=== PATIENT | male | born 1930 | race Caucasian/White ===

== ENCOUNTER 2016-05-17 13:32 | Outpatient (CLI) | payer MEDICARE, BC ==
--- NOTE | 2016-05-17 15:17 | RAD ---
TWO VIEWS RIGHT HIP: INDICATION: Right hip pain. FINDINGS: Three metallic screws traverse fracture site of the subcapital aspect of proximal right femur. Alig nment is grossly stable. No significant interval change. IMPRESSION: Persistent fracture lucency of the postoperative right femur related to pinned subcapital right femo ral neck fracture. POS: [facility]
== END 2016-05-17 13:33 | disposition home or self-care (01) ==
LOC: MADRAD 13:32
PROVIDERS: ATTEND Orthopaedic Surgery
DX: S72.001A Fracture of unspecified part of neck of right femur, initial encounter for closed fracture (principal)

== ENCOUNTER 2017-02-05 08:07 | Emergency (ER) | payer MEDICARE, BC ==
[2017-02-05 09:04] LABS: #Lymphocytes 1.1 thou/uL (1.20-3.40); #Monocytes 0.6 thou/uL (0.11-0.59); %Basophils 0.5 % (0.0-1.0); %Eosinophils 0.6 % (0.0-10.0); %Lymphocytes 12.3 % (21.0-51.0); %Monocytes 6.6 % (0.0-10.0); %Neutrophils 80.1 % (42.0-75.0); Hemoglobin 15.2 g/dL (14.0-18.0); Mean Corpuscular HGB CONC 34.1 g/dL (32.0-36.0); Mean Corpuscular Hemoglobin 31.9 pg (27.0-31.0); Mean Corpuscular Volume 93.5 fl (80.0-94.0); Mean Platelet Volume 6.5 fL (7.4-10.4); Platelet Count 160 thou/uL (130-400); RBC Distribution Width 12.1 % (11.5-14.5); Red Blood Cell (RBC) Count 4.75 mill/uL (4.70-6.10); White Blood Cell (WBC) Count 8.7 thou/uL (4.8-10.8)
--- NOTE | 2017-02-05 09:14 | RAD ---
PORTABLE AP CHEST: Date: 02-05-17 History: Vomiting. 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 Dual-lead left subclavian cardiac pacemaking d evice remains in place. Cardiac silhouette and pulmonary vasculature are within normal limits. Lungs are clear. There is vascular calcification seen in the thoracic aorta. There has been no interval milena nge from prior study. IMPRESSION: No acute cardiopulmonary process. POS: [facility]
--- NOTE | 2017-02-05 09:16 | RAD ---
SUPINE ABDOMEN: History: Vomiting. FINDINGS: Bowel gas pattern is unremarkable. There is scattered gas in the colon and there is also some scatter ed small bowel gas. No evidence of small bowel dilatation or obstruction. No mass effect. Radiopaque stents overlying both iliac arteries. Degenerative changes at the hips and prior fixation of the righ t hip. IMPRESSION: Unremarkable bowel gas pattern. POS: [facility]
[2017-02-05 09:20] LABS: ALT (SGPT) 15 U/L (8-55); AST (SGOT) 18 U/L (5-34); Albumin 4.1 g/dL (3.4-4.8); Alkaline Phosphatase 89 U/L (40-150); Anion Gap 15 mmol/L (10-20); BUN (Urea Nitrogen) 23 mg/dL (8.4-25.7); Bilirubin, Total 0.9 mg/dL (0.2-1.2); Calc. Creatinine Clearance 0 mL/min (70-130); Calcium 9.4 mg/dL (7.8-10.44); Carbon Dioxide 28 mmol/L (23-31); Chloride 104 mmol/L (98-107); Estimated GFR-MDRD 51; Globulin 2.9 g/dL (2.4-3.5); Glucose 111 mg/dL (83-110); Potassium 4.3 mmol/L (3.5-5.1); Sodium 143 mmol/L (136-145)
[2017-02-05] MEDS ORDERED: Ondansetron ODT 4 MG TAB ONE (09:22)
[2017-02-05] MEDS ORDERED: Mag-Al Plus 1200 MG/1200 MG/120 MG/30 ML UDCUP ONE (09:22)
== END 2017-02-05 10:22 | disposition home or self-care (01) ==
LOC: MADERS 08:07
DX: R14.0 Abdominal distension (gaseous) (principal); I25.10 Atherosclerotic heart disease of native coronary artery without angina pectoris; G20 Parkinson's disease; F02.80 Dementia in other diseases classified elsewhere, unspecified severity, without behavioral disturbance, psychotic disturbance, mood disturbance, and anxiety; G30.9 Alzheimer's disease, unspecified; E78.5 Hyperlipidemia, unspecified; I10 Essential (primary) hypertension; F32.9 Major depressive disorder, single episode, unspecified; Z79.82 Long term (current) use of aspirin; Z79.899 Other long term (current) drug therapy
CPT/HCPCS: 36415; 71010; 74000; 80053; 85025; Q0162

== ENCOUNTER 2017-02-26 19:09 | Emergency (ER) | payer MEDICARE, BC ==
[2017-02-26] MEDS ORDERED: Acetaminophen 500 MG TAB ONE (19:35)
[2017-02-26] MEDS ORDERED: Ibuprofen 400 MG TAB ONE (19:35)
--- NOTE | 2017-02-26 20:40 | RAD ---
PORTABLE CHEST 02/26/17 PROVIDED CLINICAL HISTORY: Cough. FINDINGS: Comparison 02/05/17. The cardiac and mediastinal silhouette is within normal limits. Median sternotomy changes, CABG bergeron es and left subclavian cardiac pacing device are again seen. No focal consolidation, pleural fluid or pneumothorax apparent. Atherosclerosis is noted. IMPRESSION: No evidence for an acute cardiopulmonary process. POS: [facility]
== END 2017-02-26 22:13 ==
LOC: MADERS 19:09
DX: R50.9 Fever, unspecified (principal); I25.10 Atherosclerotic heart disease of native coronary artery without angina pectoris; G20 Parkinson's disease; F02.80 Dementia in other diseases classified elsewhere, unspecified severity, without behavioral disturbance, psychotic disturbance, mood disturbance, and anxiety; E78.5 Hyperlipidemia, unspecified; F41.9 Anxiety disorder, unspecified; F32.9 Major depressive disorder, single episode, unspecified; Z87.891 Personal history of nicotine dependence; Z79.82 Long term (current) use of aspirin; Z79.899 Other long term (current) drug therapy
CPT/HCPCS: 71010

== ENCOUNTER 2017-02-27 14:55 | Emergency (ER) | payer MEDICARE, BC ==
[~2017-02-27 14:55] MED LIST: Sodium Chloride 0.9% 1,000 ML BAG ONE
[2017-02-27] MEDS ORDERED: Acetaminophen 650 MG Suppository ONE (15:59)
[2017-02-27] MEDS ORDERED: Promethazine HCl 25 MG/ML VIAL ONE (15:59)
[2017-02-27 16:19] LABS: ALT (SGPT) 13 U/L (8-55); AST (SGOT) 15 U/L (5-34); Albumin 3.7 g/dL (3.4-4.8); Alkaline Phosphatase 63 U/L (40-150); Anion Gap 15 mmol/L (10-20); BUN (Urea Nitrogen) 28 mg/dL (8.4-25.7); Bilirubin, Total 0.8 mg/dL (0.2-1.2); Calc. Creatinine Clearance 0 mL/min (70-130); Calcium 8.4 mg/dL (7.8-10.44); Carbon Dioxide 26 mmol/L (23-31); Chloride 101 mmol/L (98-107); Estimated GFR-MDRD 43; Globulin 3.1 g/dL (2.4-3.5); Glucose 130 mg/dL (83-110); Lipase 9 U/L (8-78); Potassium 4.1 mmol/L (3.5-5.1); Protein, Total 6.8 g/dL (5.8-8.1); Sodium 138 mmol/L (136-145)
[2017-02-27 16:21] LABS: CKMB 1.1 ng/mL (0-6.6); Troponin I 0.025 ng/mL (< 0.028)
--- NOTE | 2017-02-27 16:22 | CT ---
CT CHEST WITHOUT CONTRAST 02/27/17 HISTORY: Cough, congestion and fever. COMPARISON: Chest one view prior day. CTA chest from 02/06/16. FINDINGS: A few tree-in-bud opacities within the left upper lobe are new from the comparison examination. There is also some tree-in-bud opacities and early consolidation in the superior segment left lower lobe. There is also consolidation of the left lower lobe with cavitation. The left lower lobe consolidation and cavitation is worsening. The right lung has faint central lobular ground glass nodules. No mediastinal adenopathy. Small left paratracheal and AP window lymph nodes. No pericardial effusion . Upper abdomen is unremarkable. No acute displaced rib fracture. IMPRESSION: Multifocal pneumonia with cavitations in the left lower lobe concerning for cavitary pneumonic proces s. Followup CT after treatment is recommended to evaluate for resolution. POS: [facility]
[2017-02-27 16:42] LABS: Band 15 % (5-11); Hemoglobin 14.2 g/dL (14.0-18.0); Lymphocytes 4 % (21-51); MDiff Complete? YES; Mean Corpuscular HGB CONC 33.3 g/dL (32.0-36.0); Mean Corpuscular Hemoglobin 30.9 pg (27.0-31.0); Mean Corpuscular Volume 92.8 fl (80.0-94.0); Monocytes 4 % (0-10); Neutrophil 69 % (42-75); PLT Morphology Comment Appears Decreased; Platelet Count 115 thou/uL (130-400); RBC Distribution Width 12.3 % (11.5-14.5); RBC Morphology Normal; Reactive Lymphocytes 8 % (0-10); Red Blood Cell (RBC) Count 4.58 mill/uL (4.70-6.10); White Blood Cell (WBC) Count 7.4 thou/uL (4.8-10.8)
[2017-02-27 17:00] LABS: Bilirubin Small (Negative); Blood, Urine Trace (Negative); Glucose, Urine (Dipstick) Negative (Negative); Leukocyte Negative (Negative); Nitrite Negative (Negative); Protein, Urine (Dipstick) 100 mg/dL (Neg-Trace); pH, Urine 5.5 (5.0-9.0)
[2017-02-27 17:03] LABS: Clarity Hazy (Clear); Specific Gravity, Urine 1.029 (1.002-1.036)
[2017-02-27 17:09] LABS: Bacteria/HPF Rare-Few HPF (None Seen); Crystals/HPF 2+ AMORPH URATES HPF (Negative); Other Casts/LPF 7-10 MIXED CASTS LPF (0-3 Hyaline); Squamous Epithelial 0-3 HPF (0-3); WBC/HPF None Seen HPF (0-3)
== END 2017-02-27 17:52 | disposition short-term general hospital (02) ==
LOC: MADERS 14:55
DX: J11.00 Influenza due to unidentified influenza virus with unspecified type of pneumonia (principal); N17.9 Acute kidney failure, unspecified; I25.10 Atherosclerotic heart disease of native coronary artery without angina pectoris; G30.9 Alzheimer's disease, unspecified; F02.80 Dementia in other diseases classified elsewhere, unspecified severity, without behavioral disturbance, psychotic disturbance, mood disturbance, and anxiety; G20 Parkinson's disease; E78.5 Hyperlipidemia, unspecified; I10 Essential (primary) hypertension; F41.9 Anxiety disorder, unspecified; F32.9 Major depressive disorder, single episode, unspecified; Z79.82 Long term (current) use of aspirin; Z79.899 Other long term (current) drug therapy
CPT/HCPCS: 51702; 71250; 80053; 81003; 81015; 82553; 83605; 83690; 83880; 84484; 85025; 87040; 87086; 93005; 94760; 96365; 96366; 96368; J1956; J2550; J7050